=== PATIENT | male | born 2000 | race African-American/Black ===

== ENCOUNTER 2022-03-26 08:38 | Outpatient (REF) | payer OTHER, SELFPAY ==
[2022-03-26 12:34] LABS: Influenza A PCR NEGATIVE (Negative); Influenza B PCR NEGATIVE (Negative); Resp Syncy Virus RNA Qual PCR NEGATIVE (Negative); SARS COV2 PCR INHOUSE NEGATIVE (Negative)
== END 2022-03-26 08:39 | disposition home or self-care (01) ==
LOC: HO.LAB 08:38
PROVIDERS: Visit Provider Hospitalist
DX: J02.8 Acute pharyngitis due to other specified organisms (principal); R68.89 Other general symptoms and signs; B97.89 Other viral agents as the cause of diseases classified elsewhere; Z20.822 Contact with and (suspected) exposure to COVID-19
CPT/HCPCS: 0241U

== ENCOUNTER 2024-05-13 08:16 | Outpatient (REF) | payer OTHER, SELFPAY ==
[2024-05-13 12:02] LABS: Hematocrit 44.4 % (42.0-52.0); Hemoglobin 15.6 g/dl (14.0-18.0); Mean Corpuscular HGB Conc 35.1 g/dl (31.0-36.0); Mean Corpuscular Hemoglobin 31.5 pg (27.0-33.0); Mean Corpuscular Volume 89.5 fL (80.0-98.0); Mean Platelet Volume 8.9 fL (9.4-12.4); Platelet Count 246 X10*3/uL (160-400); Red Blood Count 4.96 X10*6/uL (4.60-5.80); Red Cell Distribution Width 11.9 % (11.0-16.0); White Blood Count 5.4 X10*3/uL (4.8-10.8)
[2024-05-13 12:38] LABS: Cholesterol 167 mg/dL (<200); HDL Cholesterol 45 mg/dL (>40); Iron 67 mcg/dL (45-160); LDL Cholesterol Calculated 110 mg/dL (<100); Percent Iron Saturation 24 % (15-50); TSH reflex Free T4 1.64 uIU/mL (0.32-4.0); Total Iron Binding Capacity 279 mcg/dL (228-428); Triglycerides 62 mg/dL (<150); Unsaturated Iron Binding 212 ug/dL; Vitamin D 25-OH Total 48.4 ng/mL (>30)
[2024-05-13 12:40] LABS: Creatinine Urine 311.47 mg/dL; Microalbum/Creatinine Ratio Ur 2.8 ug/mg cr (<30)
[2024-05-13 12:47] LABS: Folate 9.3 ng/mL (> or = 4.0); Vitamin B12 588 pg/mL (200-900)
[2024-05-13 13:07] LABS: Estimated Average Glucose 105 mg/dL; Hemoglobin A1C 140.8663 umol/L; Hemoglobin A1c % 5.3 % (<6.0); Total Hemoglobin (HGBA1C) 4098.6302 umol/L
[2024-05-13 15:47] LABS: CT PCR NOT DETECTED (Not Detect.); NG PCR NOT DETECTED (Not Detect.)
[2024-05-14 07:50] LABS: Syphilis Screen Nonreactive (Nonreactive)
[2024-05-14 08:02] LABS: HIV AB/AG Nonreactive (Nonreactive); HIV Num 1 0.06 S/CO (0.00-0.99)
== END 2024-05-13 08:17 | disposition home or self-care (01) ==
LOC: HO.LNP 08:16
PROVIDERS: PCP Nurse Practitioner Family; Visit Provider Nurse Practitioner Family
DX: Z00.00 Encounter for general adult medical examination without abnormal findings (principal); Z23 Encounter for immunization; J45.20 Mild intermittent asthma, uncomplicated; F32.A Depression, unspecified; F12.90 Cannabis use, unspecified, uncomplicated; Z11.3 Encounter for screening for infections with a predominantly sexual mode of transmission
CPT/HCPCS: 80061; 82043; 82306; 82570; 82607; 82746; 83036; 83540; 84443; 85027; 86780; 87389; 87491; 87591; 90471; 90656; 96127

== ENCOUNTER 2024-05-13 09:25 | Outpatient (REF) | payer OTHER, SELFPAY | END 2024-05-13 09:26 | disposition home or self-care (01) | LOC: HO.WFDLDS 09:25 | PROVIDERS: Visit Provider Nurse Practitioner Family | DX: Z13.89 Encounter for screening for other disorder (principal) ==